=== PATIENT | male | born 1940 | race Caucasian/White ===

== ENCOUNTER 2019-06-14 00:32 | Day surgery (SDC) | payer MEDICARE, SELFPAY ==
--- NOTE | 2019-06-05 14:10 | PC.NURSE ---
SPOKE WITH PT, PT STATES DR. CIFUENTES'S OFFICE TRYING TO SCHEDULE PROCEDURE AT ANOTHER FACILITY SO PT WILL NOT TO WAIT UNTIL THE 16TH - PT WAITING TO HEAR BACK FROM DR. CIFUENTES'S OFFICE BEFORE GIVING HEALTH HX AND MEDICATION LIST. CALL BACK # GIVEN TO PT AND PT INSTRUCTED TO CALL ON Tuesday06/11/19 IF UNABLE TO HAVE PROCEDURE AT ANOTHER FACILITY
[2019-06-06 14:43] VITALS: BMI 31.0
[2019-06-14] VITALS (8 sets, daily range): BP systolic 139–158; BP diastolic 52–77; PULSE 62–70; RESP 14–20; TEMP 36.6–37.6; O2SAT 95–100
--- NOTE | ~2019-06-14 | XR_ITS ---
EXAMINATION: XR retrograde pyelo w/stent LT DATE: 06/14/2019 13:42 INDICATION: Stent exchange. Stone extraction. TECHNIQUE: Fluoroscopic images from a left internal ureteral stent placement are submitted for review . 31 seconds of fluoroscopy time. 5 fluoroscopic images. FINDINGS: There is a left double-J internal ureteral stent projecting in expected position, with proximal Sanford loop at the level of the renal pelvis and distal loop in the pelvis within the bladder lumen. IMPRESSION: 1. Left internal ureteral stent placement. Please refer to real-time procedural findings for detail s. Reviewed, dictated and finalized at location B. 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 Left internal ureteral stent placement. Please refer to real-time procedur al findings for details.
[2019-06-14] MEDS: LACTATED RINGERS 1,000 ML 30 ML IV CONT (10:25)
--- NOTE | 2019-06-14 11:08 | WPDANESEPPF ---
Anes - Initial Pre Proc Eval Procedure: Operation Date: 06/14/19 12:00 Proposed Procedures p Cystoscopy, Left Ureteroscopy, Left Retrograde Pyelogram, Left Stent Exchange, Left Stone Extraction - Madhu Garcia MD s Possible Holmium Laser Procedure - Madhu Garcia MD Date/Time: 06/14/19 11:08 Surgeon: Madhu Garcia MD Pre Op Diagnosis: Left Ureteral Stone Patient Data Age: 79 Gender: M Height: 1.75 m Weight: 95.45 kg Allergies Allergy/AdvReac Type Severity Reaction Status Date / Time No Known Allergies Allergy Unknown Verified 06/06/19 14:45 Home Medications Medication Instructions Recorded Confirmed Type Adult One Daily Multivitamin 1 tablet PO DAILY 05/11/19 06/06/19 History Aspirin Low Dose 81 mg PO DAILY 05/11/19 06/06/19 History clopidogrel 75 mg PO DAILY 05/11/19 06/06/19 History lisinopril 10 mg PO DAILY 05/11/19 06/06/19 History pravastatin 20 mg PO DAILY 05/11/19 06/06/19 History amoxicillin-pot clavulanate 1 tablet PO Q12H #10 tablet 05/12/19 06/06/19 Rx [Augmentin] hydrocodone-acetaminophen 1 tab PO Q4H PRN #20 tablet 05/12/19 06/06/19 Rx tamsulosin [Flomax] 0.4 mg PO DAILY #30 cap 05/12/19 06/06/19 Rx Patient hx anesthesia problems: none Family hx anesthesia problems: none PMFSH Past Medical History Medical History (Updated 05/11/19 @ 23:38 by Kavya Knox PA-C) History of kidney stones He is a patient of Dr. Garcia. History of skin cancer Hyperlipidemia Hypertension Presence of stent in coronary artery in patient with coronary artery disease Stents placed in 2009. Prostate cancer Status post radiation. He has been on hormone injections. More recently, his PSA has not responded as well to the hormone injections and he was started on ?an experimental drug? which he is taking 1 time a day. Retinal detachment Right-sided, status post repair. Surgical History Surgical History (Updated 05/11/19 @ 21:18 by Kavya Knox PA-C) History of cystoscopy History of extraction of renal calculus Status post surgical removal of malignant neoplasm of skin Family History Family History (Updated 05/11/19 @ 21:19 by Kavya Knox PA-C) Mother Diabetes mellitus Father Hypertension Myocardial infarction Sibling Carcinoma of colon Social History Social History (Updated 05/11/19 @ 23:34 by Kavya Knox PA-C) Social History: The patient lives in [place], [place]. His , Jennifer, and his son, Horace, are his surrogate decision makers and he is listed as a full code. 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 No mention of alcohol, tobacco, or drug abuse. Smoking status: Never smoker Second hand tobacco smoke exposure: No Alcohol intake: never Substance use: never Gender identity (if verbalized by the patient): Male Spiritual care concerns: No Anes - Eval Final PreProcedure Day of Procedure 06/14/19 11:08 Patient weight: obese Heart: regular rate and rhythm Lungs: clear to auscultation and normal air movement Airway: Mallampati scale class II Neurological: alert and oriented Last oral intake: >/= 8 hours ASA classification: III Emergent: no Anesthetic plan: proceed Anesthesia type and monitoring: general GIVS and LMA Informed Consent: The patient's anesthetic plan and its attendant risks and benefits were discussed with the patient/family/POA. Questions were solicited and answers provided to the satisfaction of the patient/family/POA.
--- NOTE | 2019-06-14 12:13 | WPDHPUPDATE1 ---
History and Physical Update Update Date/Time: 06/14/19 12:13 History and Physical has been reviewed, including an updated exam of the patient. There are NO changes in the patient's condition. Risks, benefits, and alternatives have been discussed and questions answered. Patient agrees to proceed with procedure. Plan for cysto , left retrograde, ureteroscopy with holmium laser, possible stent exchange.
[2019-06-14] MEDS: ceFAZolin 2 GM/D5W 50 ML 2 GM/50 ML BAG IVPB (12:44)
[2019-06-14] MEDS: LIDOCAINE HCL 2% GEL UROJET 10 ML PKG MUCOUS MEM (13:35)
--- NOTE | 2019-06-14 15:30 | SUR.PHASEII ---
1530 CALLED BACTRIM DS PRESCRIPTION TO [facility]. SPOKE WITH DYLAN.
--- NOTE | 2019-07-04 21:25 | OP_ITS ---
DATE OF PROCEDURE: 06/14/2019 PREOPERATIVE DIAGNOSIS: 6 mm left ureteral calculus with retained stent. POSTOPERATIVE DIAGNOSIS: 6 mm left ureteral calculus with retained stent. PROCEDURE PERFORMED: Cystoscopy, left retrograde pyelogram, left ureteroscopy with stone extraction, left ureteral stent replacement, 4.8-Sudanese contour. ANESTHESIA: General. COMPLICATIONS: None. DESCRIPTION OF PROCEDURE: The patient was taken to the operative suite. Once anesthesia was obtained, he was placed in dorsal lithotomy position, prepped and draped in usual sterile fashion. He was correctly identified. A 22-Sudanese scope was inserted into the bladder. The prior placed stent was retrieved and brought out the meatus. The guidewire was passed through the stent into the renal pelvis. We went ahead and then placed a flexible ureteroscope in to the left ureteral orifice. The stone was visualized. We used an Escape basket and we were able to retrieve in its entirety. At this point in time, we did replace the stent with a 4.8-Sudanese contour stent. Proximal end coiled in the renal pelvis, distal end in the bladder. Bladder was drained. 2% viscous lidocaine was inserted into the urethra. He was taken to recovery room in stable condition. He will be discharged home with pain medications and antibiotic. Follow up in a week's time for stent removal. D I MT: Ricky
== END 2019-06-14 15:33 | disposition home or self-care (01) ==
PROVIDERS: PCP Pediatrics; Visit Provider Urology
PROC: (CPT 52352; principal; 2019-06-14 12:00)
DX: N20.1 Calculus of ureter (principal); I10 Essential (primary) hypertension; E78.5 Hyperlipidemia, unspecified; I25.10 Atherosclerotic heart disease of native coronary artery without angina pectoris; Z95.5 Presence of coronary angioplasty implant and graft; Z85.46 Personal history of malignant neoplasm of prostate; Z92.3 Personal history of irradiation; E66.9 Obesity, unspecified; Z68.31 Body mass index [BMI] 31.0-31.9, adult
CPT/HCPCS: 52332; 52352; 74420; 82365; 88300; A9270; C1758; C1769; C1894; C2617; J0690; J1100; J2405; J2704; J3010; J7120; Q9966

== ENCOUNTER 2019-10-31 16:23 | Observation (INO) | payer MEDICARE, SELFPAY ==
[2019-10-31 16:40] VITALS: BP 119/60; PULSE 72; RESP 18; TEMP 37.2; O2SAT 96
[2019-10-31 17:07] VITALS: BMI 31.0
--- NOTE | 2019-10-31 17:07 | PC.NURSE ---
This patient, Royal Brittny Holman, was admitted to [facility] Surg Room 321-01. Patient/family oriented to hospital policies and general routines including ID bracelet, bed and alarms, visiting hours, pain management, procedures, bathroom and other care routines, personal items, smoking policy, room service/diet, and visiting hours. Valuables list has been completed. Information on how to activate the Rapid Response Team has been discussed. Patient/Family are encouraged to report perceived risks to care and to ask questions if they do not understand what they are told or what they should do.
[2019-10-31] MEDS: TAMSULOSIN HCL 0.4 MG CAPSULE PO (17:35)
[2019-10-31] MEDS: DOCUSATE SODIUM 100 MG CAPSULE PO (17:39)
[2019-10-31 22:06] VITALS: BP 108/47; PULSE 76; RESP 20; TEMP 37.4; O2SAT 96
[2019-11-01] VITALS (10 sets, daily range): BP systolic 118–147; BP diastolic 60–77; PULSE 59–73; RESP 12–22; TEMP 36–36.8; O2SAT 95–100
[2019-11-01] MEDS: CHLORHEXIDINE GLUCONATE 4% SOL 120 ML BTL 1 APPLIC TOPICAL (05:56)
--- NOTE | 2019-11-01 06:04 | ECG_ITS ---
Measurements Intervals Wilson Rate: 63 P: 72 NV: 176 QRS: -27 QRSD: 113 T: 42 QT: 406 QTc: 418 Interpretive Statements SINUS RHYTHM INTRAVENTRICULAR CONDUCTION DELAY CONSIDER ANTERIOR INFARCT, AGE INDETERMINATE ABNORMAL ECG Electronically Signed On 11-01-2019 7:05:24 CDT by Hieu Palacios D.O.
[2019-11-01 06:12] LABS: Hemoglobin 15.2 g/dL (14.0-18.0)
[2019-11-01] MEDS: LACTATED RINGERS 1,000 ML 30 ML IV CONT (06:30)
--- NOTE | 2019-11-01 06:59 | WPDANESEPPF ---
Anes - Initial Pre Proc Eval Procedure: Operation Date: 11/01/19 07:30 Proposed Procedures p Cystoscopy, Left Ureteroscopy, Left Retrograde Pyelogram, Left Stone Extraction, - Madhu Garcia MD s Possible Left Stent Placement, Possible Holmium Laser Procedure - Madhu Garcia MD Date/Time: 11/01/19 06:59 Surgeon: Madhu Garcia MD Pre Op Diagnosis: Left ureteral stone Patient Data Age: 79 Gender: M Height: 5 ft 8 in Weight: 92.7 kg Last Vital Signs Temp 36.4 C L 11/01/19 06:00 Pulse 65 11/01/19 06:00 Resp 20 11/01/19 06:00 BP 136/60 11/01/19 06:00 Pulse Ox 97 11/01/19 06:00 Allergies Allergy/AdvReac Type Severity Reaction Status Date / Time No Known Allergies Allergy Unknown Verified 06/14/19 11:48 Home Medications Medication Instructions Recorded Confirmed Type aspirin 81 mg PO DAILY #0 05/11/19 10/31/19 History clopidogrel 75 mg PO DAILY 05/11/19 10/31/19 History lisinopril 10 mg PO DAILY 05/11/19 10/31/19 History vxhffdqh-hvi-QW-lycopen-lutein 1 tablet PO DAILY #0 05/11/19 10/31/19 History [Centrum Silver Ultra Men's] pravastatin 20 mg PO DAILY 05/11/19 10/31/19 History hydrocodone-acetaminophen 1 tab PO Q4H PRN #20 tablet 05/12/19 10/31/19 Rx Laboratory Tests 11/01/19 11/01/19 05:55 05:55 Hgb 15.2 g/dL g/dL (14.0-18.0) Hct 47.0 % % (42.0-52.0) Sodium Pending Potassium Pending Chloride Pending Carbon Dioxide Pending BUN Pending Creatinine Pending Estim Creat Clear Calc Pending Estimated GFR Pending Glucose Pending Calcium Pending Patient hx anesthesia problems: none Family hx anesthesia problems: none PMFSH Past Medical History Medical History History of kidney stones He is a patient of Dr. Garcia. History of skin cancer Hyperlipidemia Hypertension Presence of stent in coronary artery in patient with coronary artery disease Stents placed in 2009. Prostate cancer Status post radiation. He has been on hormone injections. More recently, his PSA has not responded as well to the hormone injections and he was started on ?an experimental drug? which he is taking 1 time a day. Retinal detachment Right-sided, status post repair. Surgical History Surgical History History of cystoscopy History of extraction of renal calculus Status post surgical removal of malignant neoplasm of skin Family History Family History Mother Diabetes mellitus Father Hypertension Myocardial infarction Sibling Carcinoma of colon Social History Social History Social History: The patient lives in [place], [place]. His , Jennifer, and his son, Horace, are his surrogate decision makers and he is listed as a full code. 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 No mention of alcohol, tobacco, or drug abuse. Smoking status: Never smoker Second hand tobacco smoke exposure: No Alcohol intake: never Substance use: never Gender identity (if verbalized by the patient): Female Spiritual care concerns: No Anes - Eval Final PreProcedure Day of Procedure 11/01/19 06:59 Patient weight: obese Heart: regular rate and rhythm Lungs: decreased breath sounds Airway: Mallampati scale class II Neurological: other (alert) Last oral intake: >/= 8 hours ASA classification: III Emergent: no Anesthetic plan: proceed Anesthesia type and monitoring: general LMA and standard monitoring Informed Consent: The patient's anesthetic plan and its attendant risks and benefits were discussed with the patient/family/POA. Questions were solicited and answers provided to the satisfaction
[2019-11-01 07:06] LABS: Blood Urea Nitrogen 27 mg/dL (9-20); Calcium 8.7 mg/dL (8.4-10.2); Carbon Dioxide 24 mmol/L (22-30); Chloride 103 mmol/L (98-107); Estimated CRCL calculation 37 ml/min; Estimated Glomerular Filt Rate 42; Glucose 102 mg/dL (75-110); Potassium 3.6 mmol/L (3.4-5.0); Sodium 136 mmol/L (137-145)
--- NOTE | 2019-11-01 07:17 | PM.IMHP ---
H&P: HPI History of Present Illness Chief complaint: Left ureteral stone Narrative: Royal Brittny Holman is a 79 year old male transferred from [place] with a 5 mm left uvj calculus and pain. He has a history of kidney stones and is unable to pass them. His wbc was 14.8 with a cr of 1.9. No fevers. He presents for surgical intervention. Review of Systems Review of Systems: All systems reviewed & are unremarkable except as noted in HPI and below Constitutional: Constitutional: Reports as per HPI Eyes: Eyes: Reports no additional eye complaints [facility] Past Medical History Medical History History of kidney stones He is a patient of Dr. Garcia. History of skin cancer Hyperlipidemia Hypertension Presence of stent in coronary artery in patient with coronary artery disease Stents placed in 2009. Prostate cancer Status post radiation. He has been on hormone injections. More recently, his PSA has not responded as well to the hormone injections and he was started on ?an experimental drug? which he is taking 1 time a day. Retinal detachment Right-sided, status post repair. Surgical History Surgical History History of cystoscopy History of extraction of renal calculus Status post surgical removal of malignant neoplasm of skin Family History Family History Mother Diabetes mellitus Father Hypertension Myocardial infarction Sibling Carcinoma of colon Social History Social History Social History: The patient lives in [place], [place]. His , Jennifer, and his son, Horace, are his surrogate decision makers and he is listed as a full code. 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 No mention of alcohol, tobacco, or drug abuse. Smoking status: Never smoker Second hand tobacco smoke exposure: No Alcohol intake: never Substance use: never Gender identity (if verbalized by the patient): Female Spiritual care concerns: No Meds Home Medications and Allergies Home Medications Medication Instructions Recorded Confirmed Type aspirin 81 mg PO DAILY #0 05/11/19 10/31/19 History clopidogrel 75 mg PO DAILY 05/11/19 10/31/19 History lisinopril 10 mg PO DAILY 05/11/19 10/31/19 History pjhjqdrz-yuc-MT-lycopen-lutein 1 tablet PO DAILY #0 05/11/19 10/31/19 History [Centrum Silver Ultra Men's] pravastatin 20 mg PO DAILY 05/11/19 10/31/19 History hydrocodone-acetaminophen 1 tab PO Q4H PRN #20 tablet 05/12/19 10/31/19 Rx Allergies Allergy/AdvReac Type Severity Reaction Status Date / Time No Known Allergies Allergy Unknown Verified 06/14/19 11:48 Vital Signs Vital Signs - 24 hr 10/31/19 16:40 10/31/19 22:06 11/01/19 06:00 Temperature 37.2 C 37.4 C 36.4 C L Pulse Rate 72 76 65 Respiratory Rate 18 20 20 Blood Pressure 119/60 108/47 L 136/60 Pulse Oximetry 96 96 97 Exam Const: General: uncomfortable HENMT: General nose exam: Normal nares present Eyes: General: appearance normal, both eyes and all related structures EOM: EOMs intact bilaterally Resp: Effort & Inspection: normal respiratory effort Cardio: Rhythm: regular rhythm GI: GI Palp: Yes Soft to palpation Skin: General skin exam: normal color Neuro: Speech: normal speech H&P: Results Labs Labs: Short CBC 11/01/19 Range/Units 05:55 Hgb 15.2 (14.0-18.0) g/dL Hct 47.0 (42.0-52.0) % BMP 11/01/19 06:27 Sodium 136 L Potassium 3.6 Chloride 103 Carbon Dioxide 24 BUN 27 H Creatinine 1.60 H Glucose 102 Calcium 8.7 Assessment and Plan Assessment and plan (1) Ureteral stone with hydronephrosis: Code(s): N13.2 - Hydronephrosis with renal and ureteral calculous obstruction Status: Acute
[2019-11-01] MEDS: ceFAZolin 2 GM/D5W 50 ML 2 GM/50 ML BAG IVPB (07:18)
[2019-11-01] MEDS: LIDOCAINE HCL 2% GEL UROJET 10 ML PKG MUCOUS MEM (07:43)
--- NOTE | 2019-11-01 07:54 | PM.PROC ---
Procedure Note - Detailed Date of procedure: 11/01/19 Pre-op diagnosis: Left ureteral stone Post-op diagnosis: same Procedure performed: Cystoscopy, left retrograde pyelogram, left ureteroscopy with stone extraction, left ureteral stent placement 4.8 Belizean contour Description of procedure: The patient was taken to the operative suite and correctly identified. He was placed in the dorsal lithotomy position and prepped and draped in the usual sterile fashion. Nineteen Belizean scope was inserted into the bladder there are no tumors noted left ureteral orifice was edematous. We were unable to pass a wire through the cystoscope. We thus exchanged it for ureteral scope was able to manipulate the wire past the stone. The ureteral scope was used to dilate the orifice. We then used an escape basket and were able to retrieve the stone in its entirety. It is sent for analysis. And reinspection revealed no residual ureteral calculi. Pyelogram was then performed. 4.8 contour stent was then placed with the proximal end coiled in the renal pelvis and the distal end in the bladder. Bladder was drained. 2% viscous lidocaine was inserted into the urethra and patient is taken recovery room stable sedation. He will be discharged home later today. He will follow up in a week's time for stent removal. Anesthesia: GLMA Surgeon: Madhu Garcia MD Estimated blood loss (mL): 0 Drains: Yes Packing: No Pathology: yes Complications: No immediate complications Condition: stable Disposition: PACU
--- NOTE | 2019-11-01 08:44 | SUR.PHASEI ---
2527 sbar faxed floor notified
--- NOTE | 2019-11-01 09:00 | SUR.PHASEI ---
0900 UPDATED SPOUSE ON PT CONDITION
--- NOTE | 2019-11-01 09:05 | SUR.PHASEI ---
0905 FLOOR RN, SHIRA, WILL CALL BACK IN 5 MINUTES FOR REPORT
[2019-11-01] MEDS: OPTI-GEN TAB 1 TABLET PO (10:02)
[2019-11-01] MEDS: CLOPIDOGREL BISULFATE 75 MG TABLET PO (10:02)
[2019-11-01] MEDS: lisinopriL 10 MG TABLET PO (10:02)
[2019-11-01] MEDS: PRAVASTATIN SODIUM 20 MG TABLET PO (10:02)
[2019-11-01] MEDS: ASPIRIN 81 MG CHEWABLE TABLET PO (10:02)
--- NOTE | 2019-11-01 12:22 | WPDUROPN2 ---
Progress Note: A&P Assessment and Plan (1) Ureteral stone with hydronephrosis: Code(s): N13.2 - Hydronephrosis with renal and ureteral calculous obstruction Status: Acute Assessment and Plan: Ok to discharge home today. Will follow up in two weeks for stent removal. Subjective Subjective Date/Time Seen: 11/01/19 12:22 S/P Cystoscopy, left ureteroscopy with stone extraction, left stent placement\ patient doing very well, no pain, afebrile Review of Systems Respiratory: Respiratory: Reports no additional respiratory complaints Gastrointestinal: Gastrointestinal: Denies abdominal pain, Denies nausea and Denies vomiting Genitourinary: Genitourinary: Denies hematuria and Reports dysuria Exam Resp: Effort & Inspection: normal respiratory effort Cardio: Rate: regular rate GI: GI Palp: No Tenderness to palpation present (GI) : General: No CVA tenderness Objective Data Vital Signs Vital Signs: Vital Signs - 24 hr 10/31/19 16:40 10/31/19 22:06 11/01/19 06:00 Temperature 99.0 F 99.3 F 97.5 F L Pulse Rate 72 76 65 Respiratory Rate 18 20 20 Blood Pressure 119/60 108/47 L 136/60 Pulse Oximetry 96 96 97 11/01/19 06:45 11/01/19 08:05 11/01/19 08:15 Temperature 96.8 F L 97.8 F Pulse Rate 64 61 69 Respiratory Rate 20 12 12 Blood Pressure 134/60 118/65 Pulse Oximetry 98 100 100 11/01/19 08:30 11/01/19 08:45 11/01/19 09:00 Temperature Pulse Rate 64 59 L 60 Respiratory Rate 16 18 22 H Blood Pressure 129/71 136/65 131/68 Pulse Oximetry 98 96 95 11/01/19 09:15 11/01/19 09:30 11/01/19 10:00 Temperature 98.2 F 98.2 F 97.8 F Pulse Rate 65 63 73 Respiratory Rate 18 18 20 Blood Pressure 147/77 H 145/69 H 141/74 H Pulse Oximetry 98 97 98 Intake/Output Intake/Output: Intake & Output 10/29/19 10/30/19 10/31/19 11/01/19 23:59 23:59 23:59 23:59 Intake Total 240 1340 Output Total 0 1000 Balance 240 340 Meds/Results Medications: Active Medications Generic Name Dose Route Start Last Admin Trade Name Rahel PRN Reason Stop Dose Admin Hydrocodone Bitart/Acetaminophen 1 tab 11/01/19 09:12 Nakina 5-325 Mg PO Q4H PRN Moderate Pain (4-6) Aspirin 81 mg 11/01/19 09:12 11/01/19 10:02 Aspirin Chewable PO 81 mg DAILY FABBY Administration Clopidogrel Bisulfate 75 mg 11/01/19 09:12 11/01/19 10:02 Plavix PO 75 mg DAILY FABBY Administration Lisinopril 10 mg 11/01/19 09:12 11/01/19 10:02 Prinivil PO 10 mg DAILY FABBY Administration Multivitamins/Minerals 1 tablet 11/01/19 09:12 11/01/19 10:02 Ocuvite PO 1 tablet DAILY FABBY Administration Pravastatin Sodium 20 mg 11/01/19 09:12 11/01/19 10:02 Pravastatin Sodium PO 20 mg DAILY FABBY Administration Labs Labs: Laboratory Results - last 24 hr 11/01/19 11/01/19 05:55 06:27 Hgb 15.2 Hct 47.0 Sodium 136 L Potassium 3.6 Chloride 103 Carbon Dioxide 24 BUN 27 H Creatinine 1.60 H Estim Creat Clear Calc 37 Estimated GFR 42 L Glucose 102 Calcium 8.7
--- NOTE | 2019-12-06 12:48 | PM.DS ---
DS: Admitting Diagnosis Admitting Diagnosis Admitting Diagnosis: Hydronephrosis with renal and ureteral calculous obstruction DS: Summary Time Spent with Patient Time attestation: Total time spent providing and/or coordinating discharge services: DS: Data Data Completed and Pending Completed studies during hospitalization: Pending at discharge 11/01/19 07:48 Surgical [PTH] Routine Discharge Plan Discharge Attending physician on discharge: Madhu Garcia Consulting providers: Melina Taylor ; Hieu Palacios Discharging Clinician: Melina Taylor Patient Disposition: Home, Self-Care Activity: may shower and no straining Diet: as tolerated Discharge Instructions: Call office to schedule appointment with Dr. Garcia for stent removal in two weeks. Patient Instructions: Antibiotic Form Stand Alone Forms: General Discharge Information Follow-up/Referrals: Madhu Garcia MD [Physician] - Discharge Medications: Continued clopidogrel 75 mg tablet 75 mg PO DAILY RF: 0 lisinopril 10 mg tablet 10 mg PO DAILY RF: 0 aspirin 81 mg Tablet,Chewable 81 mg PO DAILY Qty: 0 RF: 0 pravastatin 20 mg tablet 20 mg PO DAILY RF: 0 Centrum Silver Ultra Men's 300-600-300 mcg Tablet 1 tablet PO DAILY Qty: 0 RF: 0 hydrocodone-acetaminophen 5-325 mg Tablet 1 tab PO Q4H PRN (Reason: Moderate Pain (4-6)) Qty: 20 RF: 0 Date of admission: 10/31/19 16:23 Primary Care Provider: SelenaDeric Admitting Provider: Madhu Garcia Discharge Date/Time: 11/01/19 13:00 Attending physician on admission: Madhu Garcia
== END 2019-11-01 13:00 | disposition home or self-care (01) ==
PROVIDERS: Nurse Practitioner Adult Health; Admitting Provider Urology; PCP Pediatrics; Visit Provider Urology
PROC: (CPT 52352; principal; 2019-11-01 07:30)
DX: N13.2 Hydronephrosis with renal and ureteral calculous obstruction (principal); Z87.442 Personal history of urinary calculi; C61 Malignant neoplasm of prostate; I10 Essential (primary) hypertension; E78.5 Hyperlipidemia, unspecified
CPT/HCPCS: 52352; 52332; 36415; 74420; 80048; 82365; 85014; 85018; 87086; 88300; 93005; 96361; 96365; A9270; C1758; C1769; C2617; G0378; J0690; J2704; J7120; Q9966

== ENCOUNTER 2021-11-03 13:59 | Outpatient (CLI) | payer MEDICARE, SELFPAY ==
--- NOTE | ~2021-11-03 | PE_ITS ---
EXAMINATION: PET_PETPSMAST_PT DATE: 11/03/2021 16:27 INDICATION: Prostate cancer. TECHNIQUE: 11.9 mCi of Piflufolastat F-18 was administered i.v. Low dose computed tomography (CT) mary ges were acquired from the base of the brain to the proximal thighs for attenuation correction and an atomic localization. Automated exposure control was employed. Dose-length product (DLP) was 1146 mGy- cm. Positron emission tomography (PET) images were acquired in the same distribution. COMPARISON: CT abdomen and pelvis 05/11/19 FINDINGS: Head/neck: There is increased activity in the lacrimal glands, major salivary glands, nasal cavity, p harynx, and glottis without abnormal CT correlate, likely physiologic. There are no pathologically en larged lymph nodes. Chest: The lungs demonstrate mild atelectasis. A calcified right lung nodule and calcified right iwona r lymph nodes are consistent with old granulomatous disease. No pleural effusion. The heart size is n ormal. There are coronary artery calcifications. No pericardial effusion. There is ectasia of ascendi ng aorta measuring 4.4 cm. There is bilateral gynecomastia. Abdomen/pelvis/proximal thighs: There is diffuse hepatic steatosis. There are gallstones in the gallb ladder. The spleen, pancreas, adrenal glands, and left kidney are normal. There is mild atrophy of ri ght kidney. There is a 2.3 cm cyst in right kidney. There are no dilated loops of bowel. The appendix is normal. There are no pathologically enlarged lymph nodes. There is no free intraperitoneal fluid. There is increased activity in the right side of the prostate. There is no osseous metastatic diseas e. IMPRESSION: 1. No evidence of metastatic disease. Reviewed, dictated and finalized at location A.
== END 2021-11-03 14:00 | disposition home or self-care (01) ==
PROVIDERS: PCP Pediatrics; Visit Provider Urology
DX: C61 Malignant neoplasm of prostate (principal)
CPT/HCPCS: 78815; A9595

== ENCOUNTER → 2022-01-21 10:51 | Outpatient (CLI) | payer MEDICARE, SELFPAY ==
--- NOTE | ~2022-01-21 | DEXA_ITS ---
Bone Density Report Name: ROYAL Brittny LOPEZ Age: 81 Sex: Male Ethnicity: White Date of : 1940 Indication: screening for osteoporosis; height loss; cancer; Referring Provider: NADINE CIFUENTES Study: Bone densitometry was performed. Exam Date: January 21, 2022 Accession number: [id number] Bone Density: Region BMD T-score Z-score Classification AP Spine (L1-L4) 1.417 3.0 4.2 Normal Femoral Neck (Left) 0.870 -0.4 1.2 Normal Total Hip (Left) 1.210 1.2 2.3 Normal Femoral Neck (Right) 0.899 -0.2 1.4 Normal Total Hip (Right) 1.201 1.1 2.3 Normal Total Hip Mean 1.206 1.2 2.3 Normal World Health Organization criteria for BMD impression classify patients as: Normal (T-score at or above -1.0), Osteopenia (T-score between -1.0 and -2.5), or Osteoporosis (T-score at or below -2.5). 10-year Fracture Risk: FRAX not reported because: All T-scores for Spine Total, Hip Total, Femoral Neck at or above -1.0 Treated for osteoporosis Clinical Information Provided by Patient: Is being treated for osteoporosis Has used the following medications: HRT (i.e. estrogen/hormone therapy), MTV, prostate treatment is HRT Has the following medical conditions: Cancer, prostate cancer Patient maximum height was 69 Drinks caffeinated beverages Impression: The patient has normal bone mass. Discussion: It is important to ask patients whether they are taking their medications and to encourage continued and appropriate compliance with their osteoporosis therapies to reduce fracture risk. It is also important to review their risk factors and encourage appropriate calcium and vitamin D intakes, exercise, fall prevention and other lifestyle measures. Follow-Up: Consider repeating this study in 2 years to reassess this patient's status, or sooner if there is some new clinical indication. Reported by: NATHAN on 01/21/2022 2:12:00 PM. Reviewed, dictated and finalized at location [facility]
== END ==
PROVIDERS: PCP Pediatrics; Visit Provider Urology
DX: M85.80 Other specified disorders of bone density and structure, unspecified site (principal); C61 Malignant neoplasm of prostate; Z79.818 Long term (current) use of other agents affecting estrogen receptors and estrogen levels
CPT/HCPCS: 77080

== ENCOUNTER 2022-12-06 12:38 | Outpatient (CLI) | payer MEDICARE, SELFPAY ==
--- NOTE | ~2022-12-06 | PE_ITS ---
EXAMINATION: PET_PETPSMAST_PT DATE: 12/06/2022 14:58 INDICATION: Prostate cancer with elevated PSA TECHNIQUE: 8.926 mCi of pipflufolastat F-18 (18-F-DCFPyL) was administered i.v. Low dose computed to mography (CT) images were acquired from the base of the brain to the base of the brain to the proxima l thighs for attenuation correction and anatomic localization. Positron emission tomography (PET) mary ges were acquired in the same distribution beginning 87 minutes after injection. Images including fus ed PET/CT images were reconstructed in axial, coronal, and sagittal planes. Automated exposure contro l technique was employed. The dose-length product was 929.31mGy-cm. COMPARISON: 11/03/2021 FINDINGS: Head/neck: Typical pattern of symmetric physiologic increased activity in the lacrimal, parotid and submandibula r glands as well as along the mucosa of the nasal and oral cavities, the latesha-, naso- and hypopharynx, the glottis and esophagus. No pathologically enlarged cervical lymphadenopathy or suspicious foci of increased uptake in the visualized head or neck. Chest: Mild dependent atelectasis in the bilateral lower lobes. A few calcified right lower lobe consistent with old granulomatous disease. No suspicious pulmonary nodules, pneumonia, pulmonary edema or pleura l effusion. Mild cardiomegaly. Atherosclerotic coronary artery calcifications. Aortic valve calcifica tion. No pericardial effusion. Thoracic aorta is normal in caliber. No pathologically enlarged or PSM A avid thoracic lymphadenopathy. Abdomen/pelvis/proximal thighs: High attenuation sludge surrounding multiple fat attenuation gallstones. No gallbladder dilation, wal l thickening or pericholecystic inflammatory stranding to suggest acute cholecystitis. 1 cm low-atten uation cyst versus hemangioma in the left hepatic lobe. Normal degree and slightly heterogenous patte rn of increased uptake throughout the liver and spleen without radiologic correlate or dominant PSMA avid lesion. The pancreas and bilateral adrenal glands are normal. Physiologic renal accumulation and excretion of activity in the kidneys, bladder and along portions of ureters. Cortical scarring and 2 .4 cm low-attenuation and photopenic cyst at the lower pole of the right kidney. Posterior inferior t o the bladder is increased uptake which is relatively intense but significantly less than the level o f the excreted urine in the bladder which appears to correspond to posterior prostate with maximal se ab 53.3 and extending to the right seminal vesicle with maximal SUV is 40.6 suspicious for residual disease with local invasion of the right seminal vesicle. 8 x 5 mm PSMA avid right perirectal nodule likely representing a metastatic lymph node with maximal SUV of 34.6. Moderate uptake scattered thro ughout the bowels with typical duodenal and proximal jejunal predominance and without radiologic ramses elate, also likely physiologic. 3.3 x 1.8 cm gas and debris containing duodenal diverticulum arising from the third portion of the duodenum. Normal appendix. No other abnormal foci of increased uptake o r pathologically enlarged lymphadenopathy in the abdomen, pelvis or proximal thighs. Musculoskeletal: Mild thoracic dextrocurvature with bridging osteophytes at multiple levels consistent with diffuse id iopathic skeletal hyperostosis (DISH). No suspicious lytic, blastic or PSMA avid bone lesions. IMPRESSION: 1. Significant increased PSMA activity in the posterior prostate extending into the right seminal ves icle consistent with residual malignancy and local invasion of the right seminal vesicle. 2. Prominent PSMA activity within a single small right perirectal lymph node consistent with metastat ic disease. 3. Cholelithiasis. Reviewed, dictated and finalized at location A. I
== END 2022-12-06 12:39 | disposition home or self-care (01) ==
PROVIDERS: PCP Pediatrics; Visit Provider Urology
DX: C61 Malignant neoplasm of prostate (principal); K80.20 Calculus of gallbladder without cholecystitis without obstruction
CPT/HCPCS: 78815; A9595

== ENCOUNTER 2023-07-04 11:16 | Outpatient (CLI) | payer MEDICARE, SELFPAY ==
--- NOTE | ~2023-07-04 | NM_ITS ---
EXAMINATION: NM bone scan whole body DATE: 07/05/2023 13:33 INDICATION: Prostate cancer TECHNIQUE: 36 mCi Tc-99m HDP was administered intravenously. Delayed whole-body scintigrams were obt ained. COMPARISON: Bone scan dated 10/31/2013 and PET/CT dated 12/06/2022 FINDINGS: Persistent mild asymmetric activity in the right renal collecting system relative to the left. Couple small foci of likely skin contamination in the pudendal region. No suspicious foci of abnormal bone uptake to suggest metastatic disease. IMPRESSION: 1. No bone lesions suspicious for metastatic disease. Reviewed, dictated and finalized at location A. 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
== END 2023-07-04 11:17 | disposition home or self-care (01) ==
PROVIDERS: PCP Pediatrics; Visit Provider Urology
DX: C61 Malignant neoplasm of prostate (principal)
CPT/HCPCS: 78306; A9503